=== PATIENT | male | born 1950 | race Caucasian/White ===

== ENCOUNTER → 2021-01-23 | Day surgery (SDC) | payer MEDICARE ==
[~2021-01-23] MED LIST: COZAAR100 MG PO; LISINOPRIL-HCT1 EACH PO; MELOXICAM15 MG PO; NORVASC5 MG PO; ZIAC 10-6.25 M1 EACH PO; ZOCOR10 MG PO
[2021-01-23 08:21] LABS: HCT 50.6 % (42.0-52.0); HGB 17.6 g/dl (13.2-18.0); MCH 31.5 pg (25.0-31.0); MCHC 34.8 g/dL (32.0-36.0); MCV 90.5 fL (78.0-100.0); MPV 11.5 fL (6.0-9.5); RBC 5.59 M/uL (4.70-6.00); RDW 13.3 % (11.5-14.0)
[2021-01-23 08:57] LABS: ALBUMIN 3.9 g/dL (3.4-5.0); BILIRUBIN - TOTAL 0.9 mg/dL (0.2-1.0); BUN/CREAT RATIO (CALC) 13.9 RATIO; CREATININE 1.22 mg/dL (0.67-1.17); GLOBULIN (CALCULATION) 4.9 g/dL; POTASSIUM 3.9 mmol/L (3.5-5.1); TOTAL PROTEIN 8.8 g/dL (6.4-8.2)
== END | disposition home or self-care (01) ==
LOC: FAS 07:20
PROVIDERS: Surgery
DX: Z12.11 Encounter for screening for malignant neoplasm of colon (principal); D12.0 Benign neoplasm of cecum; I10 Essential (primary) hypertension; E78.5 Hyperlipidemia, unspecified; F17.210 Nicotine dependence, cigarettes, uncomplicated
CPT/HCPCS: 36415; 80053; 88305; J2250; J2704; J7120